=== PATIENT | male | born 2000 | race Caucasian/White ===

== ENCOUNTER 2022-03-02 15:52 | Emergency (ER) | payer MEDICAID, SELFPAY ==
[2022-03-02 15:54] VITALS: BP 104/51; PULSE 101; RESP 15; TEMP 36.9; O2SAT 100; BMI 22.9
--- NOTE | 2022-03-02 16:03 | CT_ITS ---
INDICATION: Trauma, fall EXAMINATION: CT CERVICAL SPINE - CT Spine Cervical W/O Contrast Injection TECHNIQUE: Helically acquired images were obtained of the cervical spine. 2D reformatted images were reviewed. A radiation dose optimization technique was used for this scan. IV Contrast dosage and agent: None. COMPARISON: None. FINDINGS: VERTEBRAE: No acute fracture. Normal alignment. Normal craniocervical junction and cervicothoracic junction. DISCS and SPINAL CANAL: Disc heights are preserved. NECK SOFT TISSUES: No prevertebral soft tissue swelling. LUNG APICES: Clear. CT/Spine Cervical without Contras IMPRESSION: No acute bony abnormality. Electronically Signed: Jj Petty MD at 17:14 EST ,
--- NOTE | 2022-03-02 16:03 | CT_ITS ---
INDICATION: Trauma, fall, possible seizure EXAMINATION: CT BRAIN - CT Head or Brain W/O Contrast Injection TECHNIQUE: Multiple axial images were obtained of the head without intravenous contrast. A radiation dose optimization technique was used for this scan. IV Contrast dosage and agent: None. COMPARISON: None FINDINGS: BRAIN PARENCHYMA: No intra- or extra-axial hemorrhage. No evidence of acute infarct. No intracranial mass or mass effect. There is preservation of the vásquez/white matter interface. Posterior fossa structures are unremarkable. CSF SPACES: Appropriate for age. No hydrocephalus. Basal cisterns are patent. CALVARIUM, SKULL BASE, PARANASAL SINUSES AND MASTOID AIR CELLS: Ethmoid, sphenoid and right maxillary sinus mucoperiosteal disease. No acute fracture. High right posterior parietal cephalhematoma. ORBITS: Both globes, extraocular muscles, optic nerves and retrobulbar fat appear unremarkable. CT/Brain/Head without Contrast IMPRESSION: No acute intracranial findings. Electronically Signed: Jj Petty MD at 17:10 EST ,
--- NOTE | 2022-03-02 16:04 | EDS_ITS ---
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 He does not recall what happened after that. Coworkers had reported that it appeared as though he fell to the ground. They thought he may have been hitting his head on the ground but that this could have been seizure activity. He was then very combative. EMS called about this and they were going to medicate him but he did calm down. He is much calmer now. He evidently has a history of ADHD. There is no reported seizure history. He is on no medications He has no allergies No recent surgeries. No drug use PFSH PFS Medical History no medical history Home Medications NK 03/02/22 [History Last Taken Unknown] Allergy/AdvReac Type Severity Reaction Status Date / Time No Known Allergies Allergy Verified 03/02/22 16:03 Family History no significant family his Surgical History no surgical history Social History Smoking Status: Never smoker ROS ROS ED Constitutional Constitutional ED: Denies fever(s) or subjective Eyes Eyes: Denies change in vision or diplopia ENT ENT ED: Denies rhinorrhea or sore throat Cardiovascular Cardiovascular: Denies chest pain or palpitations Respiratory/Chest Respiratory/Chest: Denies cough or dyspnea Gastrointestinal Gastrointestinal: Denies nausea or vomiting Genitourinary Genitourinary ED: Denies dysuria Musculoskeletal Musculoskeletal: Denies back pain or neck pain Integumentary Reports Abrasions and other Details: Abrasion to right side of head. Neurologic Neurologic: Reports headache(s) Psychiatric Psychiatric: Denies anxiety or depression Endocrine Endocrinology: Denies polydipsia or polyuria Hematologic/Lymphatic Hematologic/Lymphatic: Denies easy bleeding or easy bruising Allergic/Immunologic Allergic/Immunologic ED: Denies urticaria EXAM Physical Exam Const Vital Signs: 03/02/22 15:54 03/02/22 16:01 03/02/22 16:56 Temperature 98.4 F Temperature Source Oral Pulse Rate 101 H 112 H Respiratory Rate 15 20 H Respiratory Effort Normal Respiratory Depth Normal Respiratory Pattern Normal Blood Pressure 104/51 L 131/110 H Blood Pressure Mean 68 117 Pulse Ox 100 97 Oxygen Delivery Method Room Air Room Air 03/02/22 18:08 03/02/22 19:26 03/02/22 21:34 Temperature Temperature Source Pulse Rate 109 H 74 87 Respiratory Rate 18 15 13 Respiratory Effort Respiratory Depth Respiratory Pattern Blood Pressure 111/55 L 102/53 L 98/44 L Blood Pressure Mean 73 69 62 Pulse Ox 98 98 97 Oxygen Delivery Method Room Air Room Air Room Air Positive well nourished and well developed General Appearance ED: well developed and NAD HEENT Reports moist mucous membranes HEENT Narrative: Patient does have a contusion abrasion of the right frontal area in the right posterior high occipital area. No laceration. No step-off. Eyes PERRL and EOMs intact bilaterally Eyes Narrative: Pupils are equal round reactive to light and to accommodate. They are about 2- 1/2 mm until light is placed. Range of motion appears equal and normal. Neck supple General: Negative for tenderness Chest Wall inspection of chest normal and palpation of chest normal Resp normal respiratory effort and clear to auscultation bilaterally Cardio regular rate and regular rhythm GI normal to inspection, nondistended, normoactive bowel sounds and non-tender Back/Spine no CVA tenderness Extremity normal to inspection General Extremety ED: Negative for edema or tenderness General Extremity: Negative for edema Neuro oriented x3 Neuro Narrative: Patient is awake and alert. He is oriented times person place year and month. He was able to pick out the president out of the list of 5 names but could not think of it spontaneously. He is cooperative. Sensorium / Orientation: Negative for lethargic or stuporous Psych mental status grossly normal Skin Skin Narrative: Abrasions to forehead and scalp as above. MDM MDM MDM Narrative Medical decision making narrative: Imaging is negative. CBC is normal. Electrolytes showed some high potassium, low bicarb high lactic acid and high prolactin. Liver function test show no marked abnormalities. I repeated electrolytes and lactate and they are normal. Taking the entire history presentation lab work together I think this patient likely had a seizure at work. He does get some poor sleep but I cannot get any other risk from him. I do not think he needs to be started acutely on medicine. Why we will have him follow-up with neurology. He is totally awake alert appropriate and feels much better now. Lab Data Attestation: I reviewed the patient's lab results. Labs: Laboratory Results - last 24 hr 03/02/22 03/02/22 03/02/22 16:00 16:00 16:00 WBC 7.7 RBC 4.40 L Hgb 13.8 Hct 41.1 MCV 93.4 MCH 31.4 MCHC 33.6 RDW Std Deviation 44.0 H RDW Coeff of Erika 12.8 Plt Count 398 MPV 9.9 Immature Gran % (Auto) 0.800 Neut % (Auto) 51.8 Lymph % (Auto) 35.1 Prowers % (Auto) 8.4 Eos % (Auto) 3.4 Baso % (Auto) 0.5 Absolute Neuts (auto) 4.0 Absolute Lymphs (auto) 2.72 Nucleated RBC % 0 Sodium 137 Potassium 5.5 H Chloride 104 Carbon Dioxide 18.0 L Anion Gap 15 BUN 8 Creatinine 1.28 Estim Creat Clear Calc 89.06 Est GFR (MDRD) Af Amer 91 Est GFR (MDRD) Non-Af 75 BUN/Creatinine Ratio 6.2 L Glucose 114 H Lactic Acid 5.9 H* Calcium 9.0 Total Bilirubin 0.30 AST 57 H ALT 26 Alkaline Phosphatase 70 Total Protein 8.1 Albumin 4.3 Globulin 3.8 Albumin/Globulin Ratio 1.1 Prolactin 44.3 Urine Opiates Screen Urine Methadone Screen Ur Barbiturates Screen Ur Phencyclidine Scrn Ur Amphetamines Screen MDMA (Ecstasy) Screen U Benzodiazepines Scrn Urine Cocaine Screen U Cannabinoids Screen Ur Drug Screen Comment 03/02/22 03/02/22 03/02/22 18:16 20:34 20:34 WBC RBC Hgb Hct MCV MCH MCHC RDW Std Deviation RDW Coeff of Erika Plt Count MPV Immature Gran % (Auto) Neut % (Auto) Lymph % (Auto) Prowers % (Auto) Eos % (Auto) Baso % (Auto) Absolute Neuts (auto) Absolute Lymphs (auto) Nucleated RBC % Sodium 140 Potassium 3.9 Chloride 108 H Carbon Dioxide 25.0 Anion Gap 7 BUN 8 Creatinine 0.94 Estim Creat Clear Calc 121.28 Est GFR (MDRD) Af Amer 130 Est GFR (MDRD) Non-Af 108 BUN/Creatinine Ratio 8.5 L Glucose 99 Lactic Acid 0.9 Calcium 8.6 Total Bilirubin AST ALT Alkaline Phosphatase Total Protein Albumin Globulin Albumin/Globulin Ratio Prolactin Urine Opiates Screen NEGATIVE Urine Methadone Screen NEGATIVE Ur Barbiturates Screen NEGATIVE Ur Phencyclidine Scrn NEGATIVE Ur Amphetamines Screen NEGATIVE MDMA (Ecstasy) Screen NEGATIVE U Benzodiazepines Scrn NEGATIVE Urine Cocaine Screen NEGATIVE U Cannabinoids Screen NEGATIVE Ur Drug Screen Comment Radiography Diagnostic Testing: Clinical Impression(s) from Imaging Studies Brain CT 03/02/22 16:03 IMPRESSION: No acute intracranial findings. Electronically Signed: Jj Petty MD at 17:10 EST , Cervical Spine CT 03/02/22 16:03 IMPRESSION: No acute bony abnormality. Electronically Signed: Jj Petty MD at 17:14 EST , CT T of the head and neck showed no acute process. EKG Initial EKG: Comments: EKG done for mild tachycardia read by me shows sinus rhythm with borderline tachycardic rate at 101. There is some peaked T waves but no acute ST elevation. NM interval, QRS duration and QTc are normal. Many of these changes are likely due to the acidosis with transient electrolyte abnormalities Discharge Plan Triage Chief Complaint: Fall ED Provider: Miles Gomez Dx/Rx/DC Orders Clinical Impression: Seizure Instructions: ED Seizure New Onset Unknown ... Prescriptions: No Action NK Stand Alone Forms: ED Work / School Excuse Primary Care Provider: Niki Loco Referrals: Cong Mcdonnell MD [Non-Staff -Ordering Privileges] - As soon as possible Niki oLco, [employer] [Primary Care Provider] - As soon as possible Disposition Disposition: Home, Self Care
--- NOTE | 2022-03-02 16:05 | NURSING ---
NO OLD EKGS
[2022-03-02] MEDS: Ondansetron 4 MG/2 ML Vial IV (16:30)
[2022-03-02 16:37] LABS: Absolute Lymphocyte Count 2.72 X10^3/uL (0.83-4.51); Basophil# 0.04 X10^3/uL; Basophil% 0.5 % (0-1); Eosinophil# 0.26 X10^3/uL; Eosinophils% 3.4 % (0-5); Hematocrit 41.1 % (40-54); Hemoglobin 13.8 g/dL (13.0-16.5); Lymphocyte # 2.72 X10^3/ul (0.83-4.51); Lymphocyte % 35.1 % (19-41); Mean Corp Hgb Conc 33.6 g/dL (32-36); Mean Corpuscular Hgb 31.4 pg (27.0-32.0); Mean Corpuscular Volume 93.4 fL (80-94); Mean Platelet Vol. 9.9 fl (6.2-12.0); Monocyte# 0.65 X10^3/uL; Monocyte% 8.4 % (0-10); NRBC Flagged by Analyzer 0 % (0-5); Neutrophil # 4.01 X10^3/uL (2.7-7.7); Neutrophil % 51.8 % (47-70); Platelet Count 398 K/mm3 (150-450); RBC Distribution Width CV 12.8 % (11.6-14.6); White Blood Count 7.7 K/mm3 (4.4-11.0)
[2022-03-02 16:56] VITALS: BP 131/110; PULSE 112; RESP 20; O2SAT 97
[2022-03-02 16:56] LABS: ALB/GLOB Ratio 1.1 RATIO (0.9-2.4); AST(SGOT) 57 U/L (15-37); Alanine Aminotransfer ALT/SGPT 26 U/L (16-61); Albumin, Serum 4.3 g/dL (3.2-5.0); Alkaline Phosphatase 70 U/L (45-117); Anion Gap 15 (5-15); BUN 8 mg/dL (7-18); BUN/Creat Ratio 6.2 RATIO (10-20); Chloride 104 mmol/L (98-107); Creatinine, Serum 1.28 mg/dL (0.70-1.30); EST Glomerular Filtration Rate 75 mL/min (>60); Est Glom Filt Rate - Afr Amer 91 mL/min (>60); Estimated Creatinine Clearance 89.06 ml/min; Globulin 3.8 g/dL (2.2-4.2); Glucose 114 mg/dL (74-106); Potassium 5.5 mmol/L (3.5-5.1); Prolactin 44.3 ng/mL; Protein, Total 8.1 g/dL (6.4-8.2); Sodium Level 137 mmol/L (136-145)
[2022-03-02 17:01] LABS: Lactic Acid 5.9 mmol/L (0.4-1.9)
[2022-03-02] MEDS: 0.9% Normal Saline 1,000 ML 999 ML IV (18:00)
[2022-03-02 18:08] VITALS: BP 111/55; PULSE 109; RESP 18; O2SAT 98
[2022-03-02 18:36] LABS: Amphetamine Urine VISTA NEGATIVE (<1000 ng/mL); Barbiturate Urine VISTA NEGATIVE (< 200 ng/mL); Benzodiazepine Urine VISTA NEGATIVE (< 200 ng/mL); Cocaine Urine VISTA NEGATIVE (< 300 ng/mL); Ecstacy Urine VISTA NEGATIVE (< 500 ng/mL); Methadone Urine VISTA NEGATIVE (< 300 ng/mL); PCP Urine VISTA NEGATIVE (< 25 ng/mL); THC Urine VISTA NEGATIVE (< 50 ng/mL); Vista UDS pH Range 6
[2022-03-02 19:26] VITALS: BP 102/53; PULSE 74; RESP 15; O2SAT 98
[2022-03-02 20:33] LABS: Reflex Lactate? Y
[2022-03-02 20:59] LABS: Anion Gap 7 (5-15); BUN 8 mg/dL (7-18); BUN/Creat Ratio 8.5 RATIO (10-20); Calcium,Total 8.6 mg/dL (8.5-10.1); Chloride 108 mmol/L (98-107); Creatinine, Serum 0.94 mg/dL (0.70-1.30); EST Glomerular Filtration Rate 108 mL/min (>60); Est Glom Filt Rate - Afr Amer 130 mL/min (>60); Estimated Creatinine Clearance 121.28 ml/min; Glucose 99 mg/dL (74-106); Potassium 3.9 mmol/L (3.5-5.1); Sodium Level 140 mmol/L (136-145)
[2022-03-02 21:11] LABS: Lactic Acid 0.9 mmol/L (0.4-1.9)
[2022-03-02 21:34] VITALS: BP 98/44; PULSE 87; RESP 13; O2SAT 97
== END 2022-03-02 21:41 | disposition home or self-care (01) ==
PROVIDERS: Emergency Provider Emergency Medicine; PCP Nurse Practitioner Family; Visit Provider Emergency Medicine
DX: R56.9 Unspecified convulsions (principal)
CPT/HCPCS: 70450; 72125; 80048; 80053; 80307; 83605; 84146; 85025; 93005; 96361; 96374; 99285; J7030; J7040; A4216; J2405

== ENCOUNTER → 2022-08-16 | Outpatient (CLI) | payer BC, MEDICAID, SELFPAY | END | disposition home or self-care (01) | PROVIDERS: PCP Nurse Practitioner Family; Referring Provider Psychiatry & Neurology Neurology; Visit Provider Psychiatry & Neurology Neurology | DX: G40.909 Epilepsy, unspecified, not intractable, without status epilepticus (principal) | CPT/HCPCS: 95819 ==

== ENCOUNTER → 2022-08-22 | Outpatient (CLI) | payer BC, MEDICAID, SELFPAY ==
--- NOTE | 2022-08-22 16:58 | MRI_ITS ---
EXAM: MR HEAD WITHOUT AND WITH INTRAVENOUS CONTRAST CLINICAL INDICATION: None provided. Epilepsy TECHNIQUE: Multiplanar and multisequence MR images of the brain were obtained without and with intravenous contrast. Contrast: clariscan 15ml IV COMPARISON: No relevant prior studies available. FINDINGS: BRAIN AND EXTRA-AXIAL SPACES: No mass, midline shift or abnormal enhancement. Signal voids of the dural venous sinuses appear unremarkable. SELLA: Unremarkable. Normal sella turcica, pituitary gland, infundibular stalk, optic chiasm and hypothalamus. AUDITORY SYSTEM: Unremarkable. The internal auditory canals are patent. BONES/JOINTS: Unremarkable. No evidence of mesial temporal sclerosis or hippocampal asymmetry on the additional high-resolution coronal temporal lobe imaging. SINUSES: Mild bubbly dependent material in the sphenoid sinuses and mild mucosal thickening and bubbly material in the ethmoid sinuses, mild mucosal thickening in the maxillary sinuses. MASTOID AIR CELLS: Unremarkable as visualized. Clear. ORBITS: Unremarkable as visualized. Both globes, extraocular muscles, optic nerves and retrobulbar fat appear unremarkable. VASCULATURE: Unremarkable as visualized. Normal flow voids in the major intracranial circulation. MRI/Brain W/WO Contrast IMPRESSION: No acute findings in the head/brain. No visible temporal lobe asymmetry. Mild paranasal sinusitis. Electronically Signed: Anastasia Banks MD at 23:23 EDT ,
== END | disposition home or self-care (01) ==
LOC: MRI 16:50
PROVIDERS: PCP Nurse Practitioner Family; Referring Provider Psychiatry & Neurology Neurology; Visit Provider Psychiatry & Neurology Neurology
DX: G40.909 Epilepsy, unspecified, not intractable, without status epilepticus (principal)
CPT/HCPCS: 70553; A9575

== ENCOUNTER → 2023-02-03 | Outpatient (CLI) | payer BC, MEDICAID, SELFPAY ==
--- NOTE | 2023-02-03 08:39 | EKG12_ITS ---
Test Reason : RBBB Blood Pressure : / mmHG Vent. Rate : 067 BPM Atrial Rate : 067 BPM P-R Int : 148 ms QRS Dur : 100 ms QT Int : 404 ms P-R-T Axes : 040 005 018 degrees QTc Int : 426 ms Normal sinus rhythm with sinus arrhythmia Normal ECG Confirmed by LADI TONG, JENNIFER ([id number]), publishing editor CHIP KANG ([id number]) on 02/07/2023 12:44:32 PM Referred By: Cong Mcdonnell Confirmed By:LOUANN BLEDSOE MD
== END | disposition home or self-care (01) ==
LOC: PSN 08:39
PROVIDERS: Referring Provider Psychiatry & Neurology Neurology; Visit Provider Psychiatry & Neurology Neurology
DX: I45.10 Unspecified right bundle-branch block (principal)
CPT/HCPCS: 93005

== ENCOUNTER 2023-10-13 19:14 | Emergency (ER) | payer OTHER, BC, MEDICAID, SELFPAY ==
[2023-10-13 19:14] VITALS: BP 138/80; PULSE 82; RESP 16; TEMP 36.4; O2SAT 97; BMI 25.8
--- NOTE | 2023-10-13 19:39 | EDS_ITS ---
HPI History of Present Illness Chief Complaint: Laceration Detail of Chief Complaint: Injury left ring and long finger Informant: patient Occured/Mechanism Mechanism/Context: Yes blunt trauma Comment: This occurred at work when a piece of metal kicked back. Onset/Context/Timing Onset: Hours Context: Sudden Onset Timing: Continuous Current Severity: Mild Maximum Severity: Moderate Worsened by: Movement of fingers Relieved by: Not using fingers Associated Symptoms Associated Symptoms: Negative for Parasthesia, Weakness or Loss of Funtion Narrative Narrative: Patient is a 23-year-old [id number] male. He sustained injury to his right long and ring finger. Tetanus was 7 years ago. He denies paresthesia, anesthesia or motor weakness. Tetanus Immunization: 5-10 years Prior similar symptoms: No Recent Illness/Hospitalization: No PFSH PFSH Home Medications ?Medication ?Instructions ?Recorded ?Last Taken ?Type NK 03/02/22 Unknown History Allergy/AdvReac Type Severity Reaction Status Date / Time No Known Allergies Allergy Verified 10/13/23 19:16 Family History Mother Seizures Surgical History No history of previous surgery Social History Smoking Status: Never smoker second hand exposure: Yes details: socially substance use type: does not use what type of physical activity do you participate in: none seatbelt use: always ROS ROS ED Constitutional Constitutional ED: Denies chills, fever(s), subjective or sweats Eyes Eyes: Denies blurry vision, change in vision or diplopia Integumentary Reports other Details: Flap-like laceration tip of the ring finger and laceration ulnar side long finger with nailbed involvement ; Denies abscess, Abrasions or rash Neurologic Neurologic: Denies paresthesias Hematologic/Lymphatic Hematologic/Lymphatic: Denies easy bleeding or easy bruising EXAM Physical Exam Const Vital Signs: 10/13/23 19:14 Temperature 97.6 F L Temperature Source Temporal Pulse Rate 82 Respiratory Rate 16 Blood Pressure 138/80 H Blood Pressure Mean 99 Pulse Ox 97 Oxygen Delivery Method Room Air Positive well nourished and well developed General Appearance ED: well developed and NAD HEENT Reports moist mucous membranes normocephalic and atraumatic Eyes PERRL and EOMs intact bilaterally Resp normal respiratory effort Cardio regular rate and regular rhythm Extremity Negative for normal to inspection Extremity Narrative: The extensor commonness tendon is intact for the long and ring finger. The flexor digitorum superficialis and flexor digitorum profundus is intact for the long and ring finger. There is no subungual hematoma any of the digits. Heydi ent has a laceration through the nailbed on the ulnar side of the long finger which will require repair. There is a flap like laceration tip of the ring finger. Will evaluate after patient is been anesthetized to determine this is viable and requires suturing or not. Nurse entered x-rays per protocol. Neuro oriented x3, CN's II-XII intact bilaterally, no focal motor deficits and no sensory deficits noted Neuro Narrative: Median, radial and ulnar function intact. Skin General Skin Exam: Negative for petechiae Lesions: no lesions Rashes: no rashes Trauma: Negative for no lacerations or abrasions MDM MDM MDM Narrative Medical decision making narrative: X-ray was obtained to determine if patient has fracture of his distal phalanx of the left long or ring finger. Radiography Chest X-Ray - ED: Read by ED Physician (Three-view x-ray of the left hand was obtained. There is no evidence of tuft fracture of the long or ring finger.'s and pending reviewed interpreted by me at 1959.) Procedures Other Procedures Procedure(s): Patient's digit was anesthetized with 1% lidocaine both digital block. The distal portion of the nail was removed. The skin was closed using 5-0 Ethilon. 5 stitches was placed. 2 stitches placed to repair nailbed injury using 5-0 repid. Discharge Plan Triage Chief Complaint: Laceration ED Provider: Adeel Lindsay Dx/Rx/DC Orders Clinical Impression: Laceration of finger of left hand with damage to nail, Avulsion of skin of finger without complication Prescriptions: No Action NK Stand Alone Forms: ED Work / School Excuse Primary Care Provider: Care Physician,No Primary Referrals: Corporate,Care [Group of Physicians] - 2 Days for wound check Care Physician,No Primary [Primary Care Provider] - Activity Restrictions/Additional Instructions: 1. Stitches removed in 7 days 2. Must keep wound absolutely clean and dry Print Language: Belarusian Disposition Disposition: Home, Self Care
--- NOTE | 2023-10-13 19:45 | RAD_ITS ---
INDICATION: INJURY EXAMINATION/TECHNIQUE: X-RAY - LEFT HAND XR Fingers Min 2 Views 3 VIEWS COMPARISON: FINDINGS: BONES: No fracture demonstrated. JOINTS: No dislocation. SOFT TISSUES: Unremarkable. RAD/Finger(s) Min 2 Views IMPRESSION: No evidence of fracture. Electronically Signed: Christie Davey MD at 20:20 EDT ,
[2023-10-13] MEDS: Lidocaine 1% (20 ml mdv) 20 ML Vial INFILT (19:51)
[2023-10-13 23:48] VITALS: BP 128/66; PULSE 68; RESP 18; TEMP 36.6; O2SAT 99
== END 2023-10-13 23:49 | disposition home or self-care (01) ==
PROVIDERS: Emergency Provider Emergency Medicine; Visit Provider Emergency Medicine
DX: S61.313A Laceration without foreign body of left middle finger with damage to nail, initial encounter (principal); S61.215A Laceration without foreign body of left ring finger without damage to nail, initial encounter; W20.8XXA Other cause of strike by thrown, projected or falling object, initial encounter; Y99.0 Civilian activity done for income or pay
CPT/HCPCS: 12001; 11750; 11760; 73140; 99284